=== PATIENT | female | born 1995 | race Caucasian/White ===

== ENCOUNTER 2016-10-11 09:27 | Emergency (ER) | payer MEDICAID ==
[~2016-10-11] VITALS: Ht 154.9 cm; Wt 50.0 kg
[2016-10-11 09:30] VITALS: Ht 154.9 cm; Wt 50.0 kg
[2016-10-11] MEDS ORDERED: ONDANSETRON 4 MG INJ IV STA (10:01)
[2016-10-11] MEDS ORDERED: SOD CHLORIDE 0.9% 1,000 ML IV STA (10:01)
[2016-10-11 10:49] LABS: ADD SCAN DIFF NO
[2016-10-11 10:51] LABS: BASOPHIL # 0.1 10^3/ul (0.0-0.1); EOSINOPHILS # 0.1 10^3/ul (0.0-0.5); EOSINOPHILS % 0.8 % (0.0-7.0); HEMATOCRIT 40.9 % (37.0-47.0); LYMPHOCYTES # 3.4 10^3/ul (0.8-2.9); MEAN CORPUSCULAR HEMOGLOBIN 32.4 pg (29.0-33.0); MEAN CORPUSCULAR HGB CONC 34.2 g/dl (32.0-37.0); MEAN CORPUSCULAR VOLUME 94.7 fl (72.0-104.0); MEAN PLATELET VOLUME 11.2 fl (7.4-10.4); MONOCYTE # 0.5 10^3/ul (0.3-0.9); MONOCYTES % 7.5 % (0.0-13.0); NEUTROPHIL # 3.2 10^3/ul (1.6-7.5); NEUTROPHILS % 43.6 % (30.0-74.0); PLATELET COUNT 251 10^3/UL (140-415); RED BLOOD COUNT 4.32 10^6/ul (4.20-5.40); WHITE BLOOD COUNT 7.2 10^3/ul (4.8-10.8)
[2016-10-11] MEDS ORDERED: SOD CHLORIDE 0.9% 100 ML ONE (10:57)
[2016-10-11] MEDS ORDERED: IOHEXOL 300MG/ML 150 ML BTL ONE (10:57)
[2016-10-11 11:00] LABS: ALBUMIN 4.7 g/dl (3.3-4.9)
[2016-10-11 11:01] LABS: POTASSIUM 3.7 mmol/L (3.5-5.1)
[2016-10-11 11:03] LABS: BILIRUBIN,INDIRECT 1.4 mg/dl (0-1.1); BILIRUBIN,TOTAL 1.4 mg/dl (0.2-1.3); CREATININE 0.62 mg/dl (0.44-1.00)
[2016-10-11 11:03] LABS: ADD UMIC NO; URINE BILIRUBIN (Dip) NEGATIVE (NEGATIVE); URINE BLOOD (Dip) NEGATIVE (NEGATIVE); URINE COLOR LT. YELLOW (YELLOW); URINE GLUCOSE (Dip) NEGATIVE (NEGATIVE); URINE KETONES (Dip) NEGATIVE (NEGATIVE); URINE LEUKOCYTE ESTERASE (Dip) NEGATIVE (NEGATIVE); URINE NITRITE (Dip) NEGATIVE (NEGATIVE); URINE TOTAL PROTEIN (Dip) NEGATIVE (NEGATIVE); URINE UROBILINOGEN (Dip) 0.2 E.U./dL (0.1-1.0)
[2016-10-11 11:04] LABS: ALBUMIN/GLOBULIN RATIO 1.38; CALCIUM 9.3 mg/dl (8.4-10.2); TOTAL PROTEIN 8.1 g/dl (6.1-8.1)
--- NOTE | 2016-10-11 11:16 | RADRPT ---
PROCEDURE: Pelvic ultrasound. CLINICAL INDICATION: Pelvic pain TECHNIQUE: Stone scale, color doppler, spectral doppler ultrasound of the pelvis was performed with transabdominal and transvaginal transducers. COMPARISON: No prior studies are available for comparison. FINDINGS: Uterus: Position: Anteverted. Normal myometrial echogenicity. Normal appearance of the endometrium. Ovaries: Normal sized ovaries with preserved blood flow. No adnexal masses. Small follicles are present within both ovaries measuring less than 2.0 cm. Free fluid: None. Measurements: Endometrium: 1.0 cm Uterus: 7.2 x 3.1 x 3.5 cm Right ovary: 3.4 x 1.9 x 2.7 cm Left ovary: 2.7 x 1.2 x 1.7 cm IMPRESSION: Normal examination. RPTAT: AADD .Guanaco Moreno MD, MD Date Time Electronically viewed and signed by .Guanaco Moreno MD, on 10/11/2016 11:16 .B/
--- NOTE | 2016-10-11 11:31 | RADRPT ---
PROCEDURE: CT abdomen and pelvis with intravenous contrast. CLINICAL INDICATION: Abdominal Pain TECHNIQUE: Following intravenous contrast, spiral CT of the abdomen pelvis was performed and is re constructed at 2.5 mm contiguous axial intervals from the dome of the diaphragm to the inferior pubi c rami. Computer reformatted coronal and sagittal images are included. CT D I 6 millicurie Dose 323 millicurie per centimeter COMPARISON: None. FINDINGS: Lung bases are clear of any infiltrate or mass. There is no effusion. The liver is of normal size, contour and attenuation with no mass or intrahepatic ductal dilatation. No gallstones are present. No splenic, adrenal or pancreatic abnormalities present. Kidneys enhance symmetrically. No hydronephrosis, calculus or masses present. Ureters are of ivory l course and caliber with no stone. No bladder mass or stone is present. Uterus and ovaries are normal. No bowel mass or obstruction is seen. There is no phlegmon, ascites or pneumoperitoneum. No aneurysm is detected. There is no adenopathy. The osseous structures are intact. IMPRESSION: No evidence of urolithiasis, obstructive uropathy, diverticulitis or appendicitis. .Teodoro Gómez MD, MD Date Time Electronically viewed and signed by .Teodoro Gómez MD, on 10/11/2016 11:31 .A/
[2016-10-11] MEDS ORDERED: ACET325T33 PO (11:46)
--- NOTE | 2016-10-11 13:00 | ERD ---
DATE OF SERVICE: HISTORY OF PRESENT ILLNESS: The patient is a 21-year-old female complaining of left lower abdominal pain x1 day, with nausea and a headache. She had her period 2 days ago, with some spotting. Her l ast period was 1 month ago. Denies vomiting, denies fever, denies back pain. PAST MEDICAL HISTORY: Denies any other medical problems. ALLERGIES: Denies allergies to medications. SURGICAL HISTORY: Denies. SOCIAL HISTORY: Denies. REVIEW OF SYSTEMS: A 12-point review of systems was done. Refer to the HPI for positives, all othe r systems are negative. PHYSICAL EXAMINATION: VITAL SIGNS: Temperature is 97.7, pulse 70, blood pressure is 116/63, respiratory rate 18, O2 satur ation 99% on room air. Pain intensity is 6/10. GENERAL: The patient is well-appearing, well-nourished, in no acute distress. HEENT: Atraumatic. Conjunctivae are pink. Pupils equal, round, and reactive to light. There is no s cleral icterus. Tympanic membranes clear bilaterally. Oropharynx clear. No nystagmus or photophobia . CHEST: Clear to auscultation bilaterally. There are no rales, wheezes or rhonchi. HEART: Regular rate and rhythm. No murmurs, clicks, rubs or gallops. No S3 or S4. ABDOMEN: Soft, nontender and nondistended. Good bowel sounds. No rebound or guarding. No gross rachel tonitis. No gross organomegaly or masses. No Ambrosio sign or McBurney point tenderness. BACK: No midline or flank tenderness. EMERGENCY ROOM COURSE: The patient had blood work done in the ER. CBC was within normal limits. C MP was within normal limits and the patient's urine was negative. The patient's urine was negative. The patient had a pelvic ultrasound which showed a normal examination. The patient had a CT abdomen and pelvis with contrast which showed no evidence of urolithiasis, obstructive uropathy , diverticulitis or appendicitis. DIAGNOSIS: Abdominal pain, unspecified. MEDICAL DECISION MAKING: I have a low suspicion for appendicitis, low suspicion for bowel obstructi on, low suspicion for pelvic emergency, a low suspicion for ectopic or tubo-ovarian absces s. The patient's symptoms are unspecified and may be associated with viral etiology; however, imagin g and blood work is within normal limits. DISCHARGE: The patient was discharged stable. Patient was given a prescription for Tylenol and tierra d to follow up with her primary care within 1 to 2 days for reevaluation. The patient was told if s ymptoms progress or worsen, to return to the ER. All other questions were answered at the time of d ischarge. Discharge summary was given at the time of departure. Patient understood and complied wi th the plan. Dictated By: DOC EDOUARD for JUVE BURRELL/NTS Conf#: [id number] DID#: [id number]
== END 2016-10-11 12:11 | disposition home or self-care (01) ==
LOC: FTE 09:27
DX: R10.32 Left lower quadrant pain (principal); R11.0 Nausea; R10.2 Pelvic and perineal pain
CPT/HCPCS: 36415; 74177; 76830; 76856; 80053; 81003; 83690; 85025; 96374; J2405; J7030; Q9967; Z7502; Z7610